=== PATIENT | male | born 1960 | race Two or more races ===

== ENCOUNTER 2025-07-25 05:29 | Inpatient (IN) | payer MEDICAID ==
--- NOTE | 2025-07-17 14:57 | ELECTROCARDIOGRAPH REPORT ---
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 Harry Ingram Measurements Intervals [place] Rate: 56 P: 28 FL: 146 QRS: 59 QRSD: 104 T: 70 QT: 403 QTc: 389 Interpretive Statements Sinus bradycardia Abnormal R-wave progression, early transition ST elevation, consider inferior injury Electronically Signed On 07-19-2025 14:32:[address] Harry Ingram Please click the below link to view image of tracing.
[2025-07-17 15:05] LABS: PRE OP INR 1.1 INR; PRE OP PARTIAL THROMB. TIME 32.0 SECONDS (22-32); PRE OP PROTIME 11.4 SECONDS (9.0-12.0)
[2025-07-17 15:07] LABS: CREATININE 1.11 MG/DL (0.40-0.90); PRE OP ALT 36 U/L (30-65); PRE OP ANION GAP 8 (8-16); PRE OP AST 21 U/L (10-37); PRE OP BILIRUB, TOTAL 0.6 MG/DL (0.0-1.0); PRE OP GLUCOSE 102 MG/DL (70-104); PRE OP POTASSIUM 3.9 MMOL/L (3.4-5.1); PRE OP SODIUM 140 MMOL/L (135-145); TOTAL CARBON DIOXIDE 24.7 MMOL/L (24-32); eGFR 50 ML/MIN
--- NOTE | 2025-07-17 15:19 | RADIOLOGY REPORT ---
CLINICAL HISTORY: PREOP TECHNIQUE: Chest 2 views of the chest were obtained. COMPARISON: None FINDINGS: The heart size and pulmonary vasculature are normal. The lungs are clear. No pleural effusion is present. IMPRESSION: NO ACUTE CARDIOPULMONARY PROCESS.
[~2025-07-25] VITALS: Ht 175.3 cm; Wt 104.0 kg
[2025-07-25] VITALS (33 sets, daily range): BP systolic 101–140; BP diastolic 66–95; PULSE 57–87; RESP 10–21; TEMP 97.3–98.8; O2SAT 92–99
[~2025-07-25 05:29] MED LIST: ALPR1TAB7 PO; AMLO10TA13 PO; APIX5TAB3 PO; ASPI-611 PO; LOSA100T58 PO; METO-411 PO; NITR0.4T51 SL; SILD100T PO; TAMS-55 PO; ZOLP-679 PO
[2025-07-25] MEDS: DOCUMENT DATE & TIME OF BETA-BLOCKER PO ONE (05:30)
[2025-07-25] MEDS: ceFAZolin 2gm/dext,iso 50mL 50 ML IV ONE (05:30)
[2025-07-25] MEDS: VANCOMYCIN/H2O 1.5g/300mL PB 300 ML IV ONE (06:36)
[2025-07-25] MEDS: ringers solution, lacted 1,000 ML IV SCH (06:41)
[2025-07-25] MEDS ORDERED: fentaNYL/PF 50MCG/1 ML 2ML syringe ONE (07:26)
[2025-07-25] MEDS ORDERED: midazolam 1 mg/ML 2ml injection ONE (07:26)
[2025-07-25] MEDS ORDERED: propofol inj 20 ML IV ONE (07:41)
[2025-07-25] MEDS ORDERED: dexamethasone sod phosphate 4mg/ml inj. ONE (07:42)
[2025-07-25] MEDS ORDERED: glycopyrrolate 0.2mg/ml inj ONE (07:42)
[2025-07-25] MEDS ORDERED: desflurane 240ml liquid inh. IH ONE (07:42)
[2025-07-25] MEDS ORDERED: rocuronium 10mg/ml inj IV ONE (07:45)
[2025-07-25] MEDS ORDERED: ePHEDrine 50MG/ML INJ. ONE (08:05)
[2025-07-25] MEDS ORDERED: ondansetron/PF 4mg/2ml inj ONE (08:09)
[2025-07-25] MEDS ORDERED: pantoprazole 40mg Tablet.DR PO PRN (08:25)
[2025-07-25] MEDS ORDERED: potassium CL 10mEq/100ml bag 100 ML IV PRN (08:25)
[2025-07-25] MEDS ORDERED: docusate sod 100mg capsule PO PRN (08:25)
[2025-07-25] MEDS ORDERED: magnesium sulf-water 2g/50mL 50 ML IV PRN (08:25)
[2025-07-25] MEDS ORDERED: labetalol 20mg/4ml (5mg/ml) syringe IV PRN (08:25)
[2025-07-25] MEDS ORDERED: ondansetron/PF 4mg/2ml inj IV PRN (08:25)
[2025-07-25] MEDS: normal saline 1000ml 1,000 ML IV SCH (08:25)
[2025-07-25] MEDS ORDERED: potassium Cl 40MEQ/1/2NS 520ml 520 ML IV PRN (08:25)
[2025-07-25] MEDS ORDERED: non-formulary drug (Alprazolam 1 TAB) PO PRN (08:25)
[2025-07-25] MEDS ORDERED: HYDROcodone/acetaminophen 5mg/325mg tablet PO PRN (08:25)
[2025-07-25] MEDS ORDERED: potassium Cl 20 mEq SR tablet PO PRN (08:25)
[2025-07-25] MEDS ORDERED: potassium Cl 40MEQ/270ML bag 270 ML IV PRN (08:25)
[2025-07-25] MEDS ORDERED: magnesium sulf-water 4G/100mL 100 ML IV PRN (08:25)
[2025-07-25] MEDS ORDERED: potassium Cl 20mEq/100mL bag 100 ML IV PRN (08:25)
[2025-07-25] MEDS ORDERED: hydrALAZINE 20mg/ml inj. IV PRN (08:25)
--- NOTE | 2025-07-25 08:26 | OPERATIVE REPORT ---
Operative Report Providers to CC CC: SHERRY GOMEZ MD ~ Date of Procedure: Jul 25, 2025 Pre-Operative Diagnosis: Atrial Fibrillation with high bleeding risk Post-Operative Diagnosis SAME as PRE-Op Procedure Performed 1. Transseptal Puncture via JILL guidance 2. Left Atrial Appendogram 3. Left Atrial Appendage closure with 31mm Watchman FLX Pro Device 4. Ultrasound guided access, right Femoral Vein Surgeon: Peterson Gomez MD Doll Maker n/a Anesthesiologist: Alexi Nguyen Type of Anesthesia: General Findings: Left Atrial appendage amenable to percutaneous closure. Complications None Prosthetics\\Implants used: 31mm Watchman Flx Pro Estimated Blood Loss: Minimal Specimen Removed: None Description of Procedure: The patient was brought to the clinical lab assistant in a fasting state. They underwent General anesthesia. Ultrasound was used to guide access to the right femoral vein where two Perclose devices were placed and upsized to an 8Fr sheath. Heparin was given to maintain an ACT over 250 seconds. An 0.035" wire was advanced into the SVC. The 8Fr sheath was then removed and the 8.5Fr VersaCross Transseptal sheath was advanced into the SVC. The RF wire was then advanced to the tip of the sheath/dilator. Using JILL guidance, appropriate position of the tip of the sheath was determined and using an energized wire tip, advanced into the left atrium. The sheath and dilator were then advanced over the wire into the left atrium. Over the wire, the Versacross sheath was removed and exchanged for the Watchman TruSteer Sheath. The wire and dilator were then removed and exchanged for a 5Fr pigtail catheter which was placed into the left atrial appendage and an appendogram performed in the ROSAS- Caudal position. There, ACT was confirmed to be therapeutic. The Watchman sheath was then advanced into the left atrial appendage over the pigtail catheter. Once appropriate position was determined, the pigtail was removed, the 31mm Watchman FLX device and delivery system were advanced into the tip of the sheath. The delivery system was advanced until an appropriate FLX ball was formed. The guide was then retracted and the Watchman device was unsheathed will full deployment in the appendage. Next, PASS criteria was performed confirming adequate positioning and anchoring(using a tug-test), sizing showing adequate compression, and no significant leak around the device. Another Appendogram was performed confirming placement. The device was then released from the delivery system. The guide and delivery system were removed and the perclose tied as well as the [id number] suture, ensuring adequate hemostasis. Mean LA Presssure: 10mmHg Contrast: 25cc ACT: 276s Device Compression: 22-26% RESULTS: 1. Successful Left-Atrial Appendage closure with a 31mm Watchman FLX Pro device 2. Right Femoral Vein access, closed with Perclose x 2 and [id number]-dv-[id number] suture 3. Resume Eliquis 5mg BID x 45days with repeat imaging at that time. If sealed without evidence of device related thrombosis, can stop OAC and start ASA 81mg QD indefinitely, plavix 75mg QD x 6 months. They will be watched in the recovery area until stable, then transferred to the telemetry at that time. PETERSON GOMEZ MD Jul 25, 2025 08:26
[2025-07-25] MEDS: ondansetron/PF 4mg/2ml inj IV PRN (08:46)
[2025-07-25] MEDS: ALPRAZolam 0.25mg tablet PO PRN (11:44)
--- NOTE | 2025-07-25 12:08 | ELECTROCARDIOGRAPH REPORT ---
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 DINO Vega Measurements Intervals [place] Rate: 68 P: 35 [place]: 163 QRS: 51 QRSD: 106 T: 59 QT: 417 QTc: 444 Interpretive Statements Sinus rhythm Abnormal R-wave progression, early transition Minimal ST elevation, inferior leads Electronically Signed On 07-25-2025 16:52:[address] DINO Vega Please click the below link to view image of tracing.
[2025-07-25] MEDS: sod chloride 0.9% 10ml flush syringe IV SCH (16:00)
--- NOTE | 2025-07-25 17:27 | CARDIOLOGY REPORT ---
APPROVED REPORT EXAM: Focused, limited intraprocedural transesophageal 2D, spectral and color flow Doppler echocardiogram during WATCHMAN deployment. 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 Overall systolic function is normal. LVEF is 60-65%. RIGHT VENTRICLE RV is moderately increased in size with good function. ATRIA Left atrium is moderately dilated. Right atrium is severely dilated. Anterior Wing shaped appendage without thrombus detected. Left upper pulmonary vein identified. Intact interatrial septum. Width / length averages are: 0degr 24 x 26 mm; 45degr 23 x 28 mm; 90degr 20 x 24 mm; 135degr 24 x 23 mm. Loop 24: Septal tenting visualized with RF atrial septal puncture performed. Loop 24: Wire in LA. Pigtail advanced to tip of appendage. LA pressure is measured at: 7 mmHG, fluid bolus given. LA presure 10mmHG Loop 26: Appendagram performed. Loop 28: Flex ball deployed. 31 mm Watchman FLX device, PASS criteria attempted. Loop 33: Successful "TUG" test performed. Optimal compression obtained - shoulder to armando ulder measurement is: 23.5 mm. Loop44: Device released, sheath pulled back across interatrial septum. Patent interatrial septum with small residual left to right shunt (s/p transseptal puncture). Poor Doppler angle for IAS evaluation. Successfully occluded left atrial appendage with Watchman device w ell positioned without thrombus. No residual flow around device detected. No pericardial effusion post-implant. GREAT VESSELS Ascending aorta is grossly normal in size with significant tortuosity. PERICARDIUM Normal pericardium. Trace effusion, mostly anterior without hemodynamic compromise.. CONCLUSION Normal LV size and wall thickness. Overall systolic function is normal. LVEF is 60-65%. RV is moderately increased in size with good function. Left atrium is moderately dilated. Right atrium is severely dilated. Anterior Wing shaped appendage without thrombus detected. Left upper pulmonary vein identified. Intact interatrial septum. Width / length averages are: 0degr 24 x 26 mm; 45degr 23 x 28 mm; 90degr 20 x 24 mm; 135degr 24 x 23 mm. Loop 24: Septal tenting visualized with RF atrial septal puncture performed. Loop 24: Wire in LA. Pigtail advanced to tip of appendage. LA pressure is measured at: 7 mmHG, fluid bolus given. LA presure 10mmHG Loop 26: Appendagram performed. Loop 28: Flex ball deployed. 31 mm Watchman FLX device, PASS criteria attempted. Loop 33: Successful "TUG" test performed. Optimal compression obtained - shoulder to shoulder measurement is: 23.5 mm. Loop44: Device released, sheath pulled back across interatrial septum. Patent interatrial septum with small residual left to right shunt (s/p transseptal puncture). Poor Doppler angle for IAS evaluation. Successfully occluded left atrial appendage with Watchman device well positioned without thrombus. No residual flow around device detected. No pericardial effusion post-implant. Ascending aorta is grossly normal in size with significant tortuosity. Normal pericardium. Trace effusion, mostly anterior without hemodynamic compromise. Conclusion Normal LV size and wall thickness. Overall systolic function is normal. LVEF is 60-65%. RV is moderately increased in size with good function. Left atrium is moderately dilated. Right atrium is severely dilated. Anterior Wing shaped appendage without thrombus detected. Left upper pulmonary vein identified. Intact interatrial septum. Width / length averages are: 0degr 24 x 26 mm; 45degr 23 x 28 mm; 90degr 20 x 24 mm; 135degr 24 x 23 mm. Loop 24: Septal tenting visualized with RF atrial septal puncture performed. Loop 24: Wire in LA. Pigtail advanced to tip of appendage. LA pressure is measured at: 7 mmHG, fluid bolus given. LA presure 10mmHG Loop 26: Appendagram performed. Loop 28: Flex ball deployed. 31 mm Watchman FLX device, PASS criteria attempted. Loop 33: Successful "TUG" test performed. Optimal compression obtained - shoulder to shoulder measurement is: 23.5 mm. Loop44: Device released, sheath pulled back across interatrial septum. Patent interatrial septum with small residual left to right shunt (s/p transseptal puncture). Poor Doppler angle for IAS evaluation. Successfully occluded left atrial appendage with Watchman device well positioned without thrombus. No residual flow around device detected. No pericardial effusion post-implant. Ascending aorta is grossly normal in size with significant tortuosity. Normal pericardium. Trace effusion, mostly anterior without hemodynamic compromise.
--- NOTE | 2025-07-25 17:36 | CARDIOLOGY REPORT ---
APPROVED REPORT EXAM: Limited 2D, Doppler, and color-flow Echocardiogram. Patient Location: 302 Blood Pressure: 127/83 mmHg Heart Rate: 67 bpm Rhythm: NSR Indications One day Watchman FLX Closure Device follow up 31 mm Watchman FLX Closure Device Medical Office Clerk is Lily Gomez MD Previous echo 07/25/25 [facility] EF 60-65%; Intact interatrial septum with small left to right shunt s/p transeptal puncture LEFT VENTRICLE LV appears normal in size and thickness. Overall systolic function appears. LVEF is estimated 60-65%. ATRIA LA appears moderately dilated. Mobile interatrial septum with trivial (Loop 34- 39) L to R shunt s/p transseptal puncture by color and spectral Doppler. Recommend clinical correlation if indicated. MITRAL VALVE MV is thickened with mild annular thickening. Trace mitral regurgitation. TRICUSPID VALVE The tricuspid valve is normal in structure. Trace tricuspid regurgitation. PERICARDIUM Trace effusion with no evidence of hemodynamic compromise. Other Information Study Quality: Fair Conclusion LV appears normal in size and thickness. Overall systolic function appears. LVEF is estimated 60-65%. LA appears moderately dilated. Mobile interatrial septum with trivial (Loop 34- 39) L to R shunt s/p transseptal puncture by color and spectral Doppler. Recommend clinical correlation if indicated. MV is thickened with mild annular thickening. Trace mitral regurgitation. The tricuspid valve is normal in structure. Trace tricuspid regurgitation. Trace effusion with no evidence of hemodynamic compromise.
[2025-07-25] MEDS: ceFAZolin 1GM/D5W- ADD-VANTAGE 50 ML IV SCH (17:37)
[2025-07-25] MEDS: vancomycin/NS 1 GM ADD-VANTAGE 250 ML IV SCH (20:21)
[2025-07-26 02:00] VITALS: BP 134/78; PULSE 74; RESP 19; TEMP 97.6; O2SAT 94
[2025-07-26 06:00] VITALS: BP 129/83; PULSE 74; RESP 16; TEMP 97.4; O2SAT 96
[2025-07-26 06:50] LABS: MEAN PLATELET VOLUME 9.2 FL (7.4-10.4); RED CELL DISTRIBUTION WIDTH 12.9 % (11.5-14.5)
[2025-07-26 07:04] LABS: INR 1.1 INR
[2025-07-26 07:27] LABS: CREATININE 1.13 MG/DL (0.60-1.10); PRO BRAIN NATRIURETIC PEPTIDE 588 PG/ML (0-125); TOTAL CARBON DIOXIDE 24.3 MMOL/L (24-32); eCRCL 67 ML/MIN; eGFR 66 ML/MIN
[2025-07-26 08:00] VITALS: RESP 16; O2SAT 97
--- NOTE | 2025-07-26 08:12 | ELECTROCARDIOGRAPH REPORT ---
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 Reading MD: Dr. DINO Vega Measurements Intervals [place] Rate: 87 P: 45 [place]: 150 QRS: 60 QRSD: 104 T: 65 QT: 365 QTc: 439 Interpretive Statements Sinus rhythm Atrial premature complexes Sinus pause Abnormal R-wave progression, early transition Minimal ST elevation, inferior leads Electronically Signed On 07-26-2025 16:50:[address] DINO Vega Please click the below link to view image of tracing.
--- NOTE | 2025-07-26 08:48 | RADIOLOGY REPORT ---
CHEST RADIOGRAPH Indication: s/p Watchman Technique: Single frontal view of the chest was obtained Comparison: DI CHEST,TWO VIEWS on DOS: 07/17/25 FINDINGS: Lines and Tubes: None Lungs: No focal consolidation. Pleura: No effusion. No pneumothorax. Cardiomediastinal contours: Unremarkable Bones: No acute osseous abnormality. IMPRESSION: 1. No acute cardiopulmonary disease.
[2025-07-26 09:44] VITALS: BP_SYST 129; PULSE 74
--- NOTE | 2025-07-26 15:47 | DISCHARGE SUMMARY ---
Discharge Summary Providers to CC ~ Discharge Summary Admission Diagnosis: Atrial Fibrillation with high bleeding risk Hospital Course DATE OF ADMISSION: 07/25/25 DATE OF DISCHARGE: 07/26/25 Discharge Diagnosis\Comment: Atrial fibrillation with high-risk for bleeding status post left atrial appe ndage occlusion with a Watchman Operations\Procedures: 1. Transseptal Puncture via JILL guidance 2. Left Atrial Appendogram 3. Left Atrial Appendage closure with 31mm Watchman FLX Pro Device 4. Ultrasound guided access, right Femoral Vein Consultants: No consultants Complications: No complications Condition on DC: Stable Continued Medications: Alprazolam (Alprazolam) 1 Mg Tablet 1-2 TAB PO DAILY PRN for anxiety, TAB 0 Refills Amlodipine Besylate (Amlodipine Besylate) 10 Mg Tablet 1 TAB PO DAILY, TAB 0 Refills Apixaban (Eliquis) 5 Mg Tablet 1 TAB PO Q12H, TAB 0 Refills Aspirin (Aspir 81) 81 Mg Tablet.dr 1 TAB PO DAILY, TAB Losartan Potassium (Losartan Potassium) 100 Mg Tablet 1 TAB PO BID, TAB 0 Refills Metoprolol Succinate (Metoprolol Succinate) 100 Mg Tab.sr.24h 1 TAB PO DAILY, TAB 0 Refills Nitroglycerin SL* (Nitrostat SL*) 0.4 Mg Tablet 1 TAB SL UD for chest pain, TAB 1st sign of attack; may repeat every 5 mins; if pain persists after 3 in 15 min, medical attention is recommended Sildenafil Citrate* (Viagra*) 100 Mg Tablet 1 TAB PO QDAY PRN PRN for erectile dysfunction, TAB 1 hour before sexual activity Tamsulosin Hcl* (Flomax*) 0.4 Mg Cap.sr.24h 1 CAP PO BID, CAP Zolpidem Tartrate (Ambien) 10 Mg Tablet 1 TAB PO HSPRN PRN for sleep, TAB 0 Refills Discharge Summary: Patient with past medical history significant for atrial fibrillation with high- risk for bleeding presented for planned left atrial appendage occlusion with Watchman. Underwent placement of a 31 mm watchman FLX pro device with Dr. Kimberly Gomez. Please see his dictation for further details on the procedure. He tolerated the procedure well. Was monitored overnight in the telemetry unit. Has remained hemodynamically stable. Has been up and ambulatory with no complaints of chest pain, pressure, shortness for breath. No dizziness, lightheadedness or syncope. Postoperative testing was reviewed by Dr. Kimberly Gomez and she was deemed stable for discharge home. Physical exam prior to discharge: General: Awake, alert, oriented. No apparent distress Neck: Supple. Normal range of motion. No JVD Respiratory: Lungs are clear to auscultation bilaterally. No respiratory distress. Chest: Normal shape and size. No accessory muscle use. Cardiovascular: Regular rate and rhythm. S1-S2. No murmur, gallop, rub. Gastrointestinal: Abdomen is soft. Nontender to palpation. Bowel sounds present. Extremities: No lower extremity edema, cyanosis or clubbing. Femoral cath site without hematoma. No bleeding. Neurologic: Alert and oriented x4. Nonfocal Psychiatric: Normal mood and affect. Skin: Normal color. Warm and dry. Plan: Patient is being discharged home in stable condition. We will follow up as scheduled. Activity restrictions reviewed. We will take oral anticoagulation as prescribed. *Problems/Diagnosis: (1) Atrial fibrillation Total Time Spent on D/C: Up to 30 Minutes Counseling Services Smoking & Tobacco Cessation: N/A MARIAH SIMMONS NP Jul 26, 2025 15:47
== END 2025-07-26 16:03 | disposition home or self-care (01) | DRG 175 ==
LOC: PAS IN 05:29 → EDSEX 07:30 → PCU 3S 10:03
PROVIDERS: ADMIT Student in an Organized Health Care Education/Training Program; ATTEND Student in an Organized Health Care Education/Training Program
PROC: 02L73DK Occlusion of Left Atrial Appendage with Intraluminal Device, Percutaneous Approach (ICD-10-PCS; 2025-07-25)
PROC: B24BZZ4 Ultrasonography of Heart with Aorta, Transesophageal (ICD-10-PCS; principal; 2025-07-25 07:12)
DX: I48.91 Unspecified atrial fibrillation (principal); Z00.6 Encounter for examination for normal comparison and control in clinical research program; Z79.01 Long term (current) use of anticoagulants
CPT/HCPCS: 33340; 36415; 71045; 71046; 76937; 80053; 81003; 82948; 83735; 83880; 85025; 85347; 85610; 85730; 86885; 86900; 86901; 86920; 87081; 93005; 93308; 93312; 93325; A4618; A6258; A6449; C1760; C1889; C1894; G0378; J0690; J1100; J1644; J2250; J2405; J2704; J2710; J3010; J3373; J3375; J3490; J7040; J7120; Q9967